=== PATIENT | male | born 1970 | race Caucasian/White ===

== ENCOUNTER → 2021-01-31 | Day surgery (SDC) | payer OTHER ==
[~2021-01-31] VITALS: Ht 188 cm; Wt 113.4 kg
[~2021-01-31] MED LIST: ASCORBIC ACID500 MG PO; CELEXA20 MG PO; CLARITIN10 MG PO; DAILY VALUE1 EACH PO; L-LYSINE500 M1 PO; OS-CAL500 MG PO; PREVACID30 M1 PO; PRILOSEC20 MG PO; PROBIOTIC1 EAC2 PO; TAGAMET HB200 MG PO; TRAZODONE HCL50 MG PO; VITAMIN D3125 MCG PO
== END | disposition home or self-care (01) ==
LOC: FAS 11:25
DX: K59.09 Other constipation (principal); R10.13 Epigastric pain; K21.9 Gastro-esophageal reflux disease without esophagitis; Z88.0 Allergy status to penicillin; Z98.52 Vasectomy status; Z72.89 Other problems related to lifestyle
CPT/HCPCS: J1610; J2704; J7120